=== PATIENT | female | born 1995 | race Caucasian/White ===

== ENCOUNTER 2019-06-19 12:32 | Emergency (ER) | payer SELFPAY ==
[2019-06-19] MEDS ORDERED: ACETAMINOPHEN 1,000 MG/100 ML BTL IVPB ONE (13:01)
[2019-06-19] MEDS ORDERED: 0.9 % SODIUM CHLORIDE 1,000 ML BAG IV ONE (13:01)
--- NOTE | 2019-06-19 13:05 | Emergency Department Record ---
History of Present Illness - General Chief complaint: Flank Pain Stated complaint: POSS KIDNEY STONES Time Seen by Provider: 06/19/19 12:56 Source: Patient Mode of Arrival: Ambulatory Limitations: No limitations - History of Present Illness Initial comments: The patient is here due to L flank pain for 2 days. The pain seems to be worse with any movement and bending. She denies any AP, nausea, vomiting, diarrhea, or fever. The patient does have a hx of kidney stones with similar pain. MD Complaint: Other Onset/Timin -: Days(s) Radiation: L flank Severity: Moderate Severity scale (1-10): 8 Quality: Sharp Consistency: Constant Worsens with: Movement Patient : (unsure) Associated Symptoms: Denies other symptoms - Related Data Sexually active: Yes Home Medications Medication Instructions Recorded Confirmed Last Taken Alprazolam 1 mg PO ASDIR PRN 06/19/19 06/19/19 Unknown Dextroamphetamine/Amphetamine 30 mg PO DAILY 06/19/19 06/19/19 06/19/19 [Dextroamp-Amphetamin 30 mg Tab] Norethindrone-E.estradiol-Iron 1 each PO DAILY 06/19/19 06/19/19 06/19/19 [Junel Fe 1 mg-20 Mcg Tablet] Previous Rx's Medication Instructions Recorded Naproxen [Naprosyn] 250 mg PO BID #14 tablet 06/19/19 Allergies Allergy/AdvReac Type Severity Reaction Status Date / Time No Known Drug Allergies Allergy Verified 06/19/19 12:47 Travel Screening - Travel/Exposure Within Last 30 Days Have you traveled within the last 30 days?: No - Travel/Exposure Within Last Year Have you traveled outside the [place] in the last year?: No - Additonal Travel Details Have you been exposed to anyone with a communicable illness?: No - Travel Symptoms Symptom Screening: None Review of Systems Constitutional: Denies: Chills, Fever Eyes: Denies: Eye discharge ENT: Denies: Congestion Respiratory: Denies: Cough Cardiovascular: Denies: Arrhythmia, Chest pain Endocrine: Denies: Fatigue Gastrointestinal: Denies: Abdominal pain, Nausea Genitourinary: Denies: Dysuria Musculoskeletal: Denies: Arthralgia Past Medical History - SOCIAL HISTORY Smoking Status: Never smoker Alcohol Use: Occasional Drug Use: None - RESPIRATORY Hx Respiratory Disorders: No - CARDIOVASCULAR Hx Cardio Disorders: No - NEURO Hx Neuro Disorders: Yes Comment:: ADD - GI Hx GI Disorders: No - Hx Genitourinary Disorders: Yes Hx Kidney Stones: Yes - ENDOCRINE Hx Endocrine Disorders: No - MUSCULOSKELETAL Hx Musculoskeletal Disorders: No - PSYCH Hx Psych Problems: Yes Hx Anxiety: Yes - HEMATOLOGY/ONCOLOGY Hx Hematology/Oncology Disorders: No Family Medical History Any Significant Family History?: Yes Hx Anxiety: Father, Mother Hx Cancer: Grandparents Hx Depression: Father, Mother Physical Exam - General General Appearance: Alert, Oriented x3, Cooperative, No acute distress - Head Head exam: Atraumatic, Normocephalic - Eye Eye exam: Normal appearance, PERRL - Neck Neck exam: Normal inspection, Full ROM. negative: Tenderness - Respiratory Respiratory exam: Normal lung sounds bilaterally. negative: Respiratory distress - Cardiovascular Cardiovascular Exam: Regular rate, Normal rhythm, Normal heart sounds - GI/Abdominal GI/Abdominal exam: Soft, Normal bowel sounds. negative: Tenderness - Extremities Extremities exam: Normal inspection, Full ROM, Normal capillary refill. negative: Tenderness - Back Back exam: Reports: CVA tenderness (L) (mild.), Paraspinal tenderness (There is L lower lumbar paraspinal tenderness.). Denies: Vertebral tenderness Image of Body Front/Back: 1 - Area of pain and tend. - Neurological Neurological exam: Alert, Normal gait. negative: Abnormal gait, Motor sensory deficit - Psychiatric Psychiatric exam: negative: Anxious - Skin Skin exam: negative: Rash Course Vital Signs 06/19/19 12:49 Temperature 97.5 F L Pulse Rate 89 Respiratory 22 Rate Blood Pressure 113/81 Pulse Ox 98 - Reevaluation(s) Reevaluation #1: The patient is doing a lot better at this time with much less pain. She appears very comfortable and in NO distress. The L lower back pain is still mildly reproducible to palpation. I did discuss the need to rest and take the Naprosyn for pain. I also did discuss the normal workup including the lab work, UA and CT that did not demonstrate any stone or infection. She is to see her PCP this week for recheck. 06/19/19 15:11 Medical Decision Making - Data Complexity MDM Data: Labs Ordered and/or Reviewed, X-Ray Ordered and/or Reviewed - Lab Data Result diagrams: 06/19/19 13:15 06/19/19 13:15 - Radiology Data Radiology results: Report reviewed (CT: Neg for any acute process, Neg for stone or hydro.) Disposition Disposition: Discharge Clinical Impression: Acute flank pain Disposition: Home, Self-Care Condition: (2) Stable Instructions: Flank Pain (ED) Additional Instructions: Please take the Naprosyn for pain and drink plenty of fluids. Please see your doctor this week for recheck if not better. Return to the ER for any worsening symptoms. Prescriptions: Naproxen [Naprosyn] 250 mg PO BID #14 tablet Forms: Patient Portal Access Time of Disposition: 15:11 Quality - Quality Measures Quality Measures: N/A - Blood Pressure Screening View Details: Yes Does Patient Have Any of the Following: No Blood Pressure Classification: Pre-Hypertensive BP Reading Systolic Measurement: 113 Diastolic Measurement: 81 Screening for High Blood Pressure: < Pre-Hypertensive BP, F/U Documented > [G8950] Pre-Hypertensive Follow-up Interventions: Referral to alternative/primary care provider.
[2019-06-19 13:22] LABS: ABSOLUTE NEUTROPHIL COUNT 3.34; BASO % 0.2 % (0-6); EOS % 1.5 % (0-6); GRAN % 62.7 % (47-80); HEMATOCRIT 43.4 % (35.0-47.0); HEMOGLOBIN 13.9 gm/dl (11.6-16.0); LYMPH % 27.1 % (16-45); MEAN CORPUSCULAR HEMOGLOBIN 30.4 pg (27-33); MEAN PLATELET VOLUME 10.4 fl (7.4-10.4); MONO % 8.5 % (0-9); PLATELET COUNT 246 K/uL (130-400); RED BLOOD COUNT 4.57 M/uL (3.80-5.40); RED CELL DISTRIBUTION WIDTH 12.7 % (11.5-14.5); URINE APPEARANCE CLOUDY; URINE BILIRUBIN SMALL (NEGATIVE); URINE BLOOD LARGE (NEGATIVE); URINE COLOR YELLOW; URINE GLUCOSE (UA) NEGATIVE (NEGATIVE); URINE KETONE NEGATIVE (NEGATIVE); URINE LEUKOCYTE ESTERASE SMALL (NEGATIVE); URINE NITRITE POSITIVE (NEGATIVE); URINE UROBILINOGEN 0.2 E.U./dL (0.20 - 1.00); WHITE BLOOD COUNT W/O DIFF 5.3 K/uL (4.2-12.2)
[2019-06-19 13:27] LABS: AMPHETAMINE SCREEN URINE NOT DETECTED; BARBITURATE SCREEN URINE NOT DETECTED; BENZODIAZEPINE SCREEN URINE DETECTED; COCAINE SCREEN URINE NOT DETECTED; METHADONE SCREEN URINE NOT DETECTED; METHAMPHETAMINE SCREEN NOT DETECTED; OPIATE SCREEN URINE NOT DETECTED; OXYCODONE SCREEN URINE NOT DETECTED; PHENCYCLIDINE SCREEN URINE NOT DETECTED; PROPOXYPHENE SCREEN URINE NOT DETECTED; THC SCREEN URINE NOT DETECTED; TRICYCLIC ANTIDEPRESSANT SCRN NOT DETECTED
[2019-06-19 13:31] LABS: HCG,QUALITATIVE URINE NEGATIVE (NEGATIVE); URINE BACTERIA 3+; URINE RBC 36 - 50 (NONE SEEN)
[2019-06-19 13:36] LABS: BLOOD UREA NITROGEN 8 mg/dL (6-20); CREATININE 0.6 mg/dL (0.5-0.9); EST GLOMERULAR FILTRATION RATE > 60 mL/min
[2019-06-19 13:39] LABS: GLUCOSE,RANDOM 82 mg/dL (74-109)
[2019-06-19 14:14] LABS: URINE APPEARANCE SL CLOUDY; URINE BILIRUBIN NEGATIVE (NEGATIVE); URINE BLOOD LARGE (NEGATIVE); URINE COLOR YELLOW; URINE GLUCOSE (UA) NEGATIVE (NEGATIVE); URINE KETONE NEGATIVE (NEGATIVE); URINE LEUKOCYTE ESTERASE NEGATIVE (NEGATIVE); URINE NITRITE NEGATIVE (NEGATIVE); URINE PROTEIN TRACE (NEGATIVE); URINE UROBILINOGEN 0.2 E.U./dL (0.20 - 1.00)
[2019-06-19 14:30] LABS: URINE APPEARANCE CLEAR; URINE BLOOD SMALL (NEGATIVE); URINE COLOR YELLOW; URINE GLUCOSE (UA) NEGATIVE (NEGATIVE); URINE KETONE TRACE (NEGATIVE); URINE LEUKOCYTE ESTERASE NEGATIVE (NEGATIVE); URINE NITRITE NEGATIVE (NEGATIVE); URINE PROTEIN NEGATIVE (NEGATIVE); URINE UROBILINOGEN 0.2 E.U./dL (0.20 - 1.00)
[2019-06-19 14:34] LABS: URINE BILIRUBIN NEGATIVE (NEGATIVE)
[2019-06-19 14:35] LABS: URINE BACTERIA NONE SEEN; URINE EPITHELIAL CELLS NONE SEEN (FEW); URINE RBC 0 - 2 (NONE SEEN); URINE WBC NONE SEEN (0-2/hpf)
[2019-06-19] MEDS ORDERED: KETOROLAC 30 MG/ML VIAL IVP ONE (14:46)
--- NOTE | 2019-06-20 20:52 | CT SCAN REPORT ---
EXAM: CT SCAN ABDOMEN/PELVIS WO CONTRAST HISTORY: LEFT FLANK PAIN, BACK PAIN, AND PELVIC PAIN. TECHNIQUE: Standard CT imaging of the abdomen and pelvis was performed without contrast. Additional coronal and sagittal reformatted images were also performed. COMPARISON: None. FINDINGS: The lung bases are clear. The liver, gallbladder, biliary tree, pancreas, spleen, and adrenal glands are normal. The kidneys and ureters are normal in appearance. There is no urinary tract calculus or obstructive uropathy. There is no abnormal perinephric fat stranding. The aorta is normal in caliber. There is no retroperitoneal lymphadenopathy. The large and small bowel loops are normal in appearance. The appendix is visualized and is unremarkable. There are no focal inflammatory changes. There is no pneumoperitoneum or ascites. The stomach is unremarkable. The uterus and adnexa appear normal. The urinary bladder is unremarkable. The anterior abdominal wall is normal. There are no acute osseous abnormalities. IMPRESSION: NO ACUTE INTRAABDOMINAL PATHOLOGY. THERE IS NO URINARY TRACT CALCULUS OR OBSTRUCTIVE UROPATHY. JOB NUMBER: [id number] [facility]
== END 2019-06-19 15:20 | disposition home or self-care (01) ==
LOC: ER 12:32
DX: R10.32 Left lower quadrant pain (principal); M54.5 Low back pain; Z87.442 Personal history of urinary calculi
CPT/HCPCS: 99284 ×2; 96365; 96375; 85025; 80048; 81001; 81003; 81025; 80305; 74176; J1885; J7030

== ENCOUNTER 2019-07-22 16:32 | Emergency (ER) | payer MEDICAID ==
[2019-07-22] MEDS ORDERED: KETOROLAC 30 MG/ML VIAL IVP ONE (16:54)
[2019-07-22] MEDS ORDERED: 0.9 % SODIUM CHLORIDE 1,000 ML BAG IV ONE ×2 (16:54→19:15)
[2019-07-22] MEDS ORDERED: ACETAMINOPHEN 1,000 MG/100 ML BTL IVPB ONE (16:54)
--- NOTE | 2019-07-22 17:03 | Emergency Department Record ---
History of Present Illness - General Chief Complaint: Back Pain/Injury Stated Complaint: SIDE PAIN AND BACK PAIN Time Seen by Provider: 07/22/19 16:47 Source: Patient Mode of Arrival: Ambulatory Limitations: No limitations - History of Present Illness Initial Comments: 24 yo female presents with nausea, vomiting, abdominal and flank pain for one week. She states she has had renal stones in the past. This feels similar. She states during that time the urine has darkened and maybe some blood. She had some subjective fevers and chills but did not take her temperature. The pain is mostly left lateral but she has some radiate all over the abdomen. She states the pain is above the level of the umbilicus and minimal to no pain below. She was in the ED June [address] scan were negative for any acute or chronic pathology. MD Complaint: Back pain Onset/Timin -: Week(s) Place: Home Severity: Moderate Severity scale (1-10): 9 Quality: Sharp, Stabbing Consistency: Constant Improves With: Immobilization Worsens With: Movement, Walking Context: Unknown Associated Symptoms: Difficulty urinating Treatments Prior to Arrival: Acetaminophen, NSAIDS, Other - Related Data Previous Rx's Medication Instructions Recorded Cephalexin [Keflex] 500 mg PO TID #21 cap 07/22/19 Hydrocodone/APAP 5/325Mg [[place] 1 each PO Q6H #8 tab 07/22/19 5Mg/325Mg] Allergies Allergy/AdvReac Type Severity Reaction Status Date / Time No Known Drug Allergies Allergy Verified 07/22/19 16:38 Travel Screening - Travel/Exposure Within Last 30 Days Have you traveled within the last 30 days?: No - Travel/Exposure Within Last Year Have you traveled outside the [place] in the last year?: No - Additonal Travel Details Have you been exposed to anyone with a communicable illness?: No - Travel Symptoms Symptom Screening: None Review of Systems Constitutional: Reports: Chills, Fever (subjective), Malaise. Denies: Weakness Eyes: Denies: Eye discharge, Eye pain, Photophobia, Vision change ENT: Denies: Congestion, Throat pain Respiratory: Denies: Cough, Dyspnea, Hemoptysis, Wheezes Cardiovascular: Denies: Chest pain, Edema Endocrine: Denies: Fatigue, Polydipsia, Polyuria Gastrointestinal: Reports: Abdominal pain, Nausea, Vomiting. Denies: Diarrhea Genitourinary: Reports: Dysuria, Frequency, Hematuria Musculoskeletal: Reports: Back pain. Denies: Arthralgia, Neck pain Skin: Denies: Bruising, Change in color, Rash Neurological: Denies: Headache Psychiatric: Denies: Anxiety Hematological/Lymphatic: Denies: Easy bleeding, Easy bruising Past Medical History - SOCIAL HISTORY Smoking Status: Never smoker Alcohol Use: Occasional Drug Use: None - RESPIRATORY Hx Respiratory Disorders: No - CARDIOVASCULAR Hx Cardio Disorders: No - NEURO Hx Neuro Disorders: Yes Comment:: ADD - GI Hx GI Disorders: No - Hx Genitourinary Disorders: Yes Hx Kidney Stones: Yes - ENDOCRINE Hx Endocrine Disorders: No - MUSCULOSKELETAL Hx Musculoskeletal Disorders: No - PSYCH Hx Psych Problems: Yes Hx Anxiety: Yes - HEMATOLOGY/ONCOLOGY Hx Hematology/Oncology Disorders: No Family Medical History Any Significant Family History?: Yes Hx Anxiety: Father, Mother Hx Cancer: Grandparents Hx Depression: Father, Mother Physical Exam - General General Appearance: Alert, Oriented x3, Cooperative, No acute distress Limitations: No limitations - Head Head exam: Atraumatic, Normal inspection - Eye Eye exam: Normal appearance, PERRL. negative: Conjunctival injection, Scleral icterus - ENT ENT exam: Normal exam, Mucous membranes moist Ear exam: Normal external inspection Nasal Exam: Normal inspection Mouth exam: Normal external inspection - Neck Neck exam: Normal inspection - Respiratory Respiratory exam: Normal lung sounds bilaterally. negative: Respiratory distress - Cardiovascular Cardiovascular Exam: Normal rhythm, Normal heart sounds, Tachycardia - GI/Abdominal GI/Abdominal exam: Soft, Tenderness (tender left upper quadrant but very soft, no rash, remainder of the abdomen is soft). negative: Distended, Guarding, Rebound, Rigid - Rectal Rectal exam: Deferred - exam: Deferred - Extremities Extremities exam: Normal inspection. negative: Tenderness - Back Back exam: Reports: CVA tenderness (L), Tenderness. Denies: CVA tenderness (R), Rash noted - Neurological Neurological exam: Alert, Oriented X3 - Psychiatric Psychiatric exam: Normal affect, Normal mood. negative: Agitated, Anxious - Skin Skin exam: Dry, Intact, Normal color, Warm Course Vital Signs 07/22/19 16:40 Temperature 99 F Pulse Rate 122 H Respiratory 20 Rate Blood Pressure 109/72 Pulse Ox 100 - Reevaluation(s) Reevaluation #1: 07/22/19 17:27 The CBC is normal 07/22/19 17:45 the CMP is normal The UA is N+, LE+, 21-35 WBC's with +4 bacteria but with Epis of 36-50 07/22/19 19:09 The US was reviewed. Mild dilatation of the renal collecting system of indete rminate etiology. No stones present 06/19/19. If this persists consider follow up CT urogram The results were discussed with the patient Given she does not have a fever or elevated WBC count and she has had multiple CT scans in the past most recent one month ago that was normal I recommend DC home and follow up with her PCP and recheck if a CT urogram will be indicated. I explained to the patient that radiation dosing does present some future risks of cancer. The case was signed out for repeat UA. She will be treated and culture sent. Medical Decision Making - Lab Data Result diagrams: 07/22/19 17:10 07/22/19 17:10 Disposition Disposition: Discharge Clinical Impression: Left flank pain, Urinary tract infection Disposition: Home, Self-Care Condition: (1) Good Instructions: Urinary Tract Infection in Women (ED), Flank Pain (ED) Additional Instructions: Review this ER visit and the tests performed with your family doctor Call your doctor for the next available follow up appointment Return to the ER for a recheck if worse, any new concerns or questions Take the prescriptions provided as directed Prescriptions: Cephalexin [Keflex] 500 mg PO TID #21 cap Hydrocodone/APAP 5/325Mg [[place] 5Mg/325Mg] 1 each PO Q6H #8 tab Forms: Patient Portal Access Time of Disposition: 09:00 Quality - Quality Measures Quality Measures: N/A - Blood Pressure Screening Does Patient Have Any of the Following: No Blood Pressure Classification: Normal BP Reading Systolic Measurement: 109 Diastolic Measurement: 72 Screening for High Blood Pressure: < Normal BP, F/U Not Required > [G8783]
[2019-07-22 17:16] LABS: ABSOLUTE NEUTROPHIL COUNT 3.71; BASO % 0.2 % (0-6); EOS % 0.2 % (0-6); GRAN % 69.3 % (47-80); HEMATOCRIT 40.3 % (35.0-47.0); HEMOGLOBIN 13.6 gm/dl (11.6-16.0); LYMPH % 15.5 % (16-45); MEAN CELL VOLUME 90.2 fl (81-97); MEAN CORPUSCULAR HEMOGLOBIN 30.4 pg (27-33); MEAN CORPUSCULAR HGB CONC 33.7 g/dl (32-36); MEAN PLATELET VOLUME 10.3 fl (7.4-10.4); MONO % 14.8 % (0-9); PLATELET COUNT 309 K/uL (130-400); RED BLOOD COUNT 4.47 M/uL (3.80-5.40); RED CELL DISTRIBUTION WIDTH 12.3 % (11.5-14.5); WHITE BLOOD COUNT W/O DIFF 5.4 K/uL (4.2-12.2)
[2019-07-22 17:27] LABS: URINE APPEARANCE SL CLOUDY; URINE BILIRUBIN NEGATIVE (NEGATIVE); URINE BLOOD SMALL (NEGATIVE); URINE COLOR YELLOW; URINE GLUCOSE (UA) NEGATIVE (NEGATIVE); URINE KETONE NEGATIVE (NEGATIVE); URINE LEUKOCYTE ESTERASE TRACE (NEGATIVE); URINE NITRITE POSITIVE (NEGATIVE); URINE PROTEIN TRACE (NEGATIVE)
[2019-07-22 17:30] LABS: BLOOD UREA NITROGEN 8 mg/dL (6-20); CREATININE 0.6 mg/dL (0.5-0.9); EST GLOMERULAR FILTRATION RATE > 60 mL/min
[2019-07-22 17:31] LABS: HCG,QUALITATIVE URINE NEGATIVE (NEGATIVE)
[2019-07-22 17:31] LABS: TOTAL PROTEIN 8.3 g/dL (6.6-8.7)
[2019-07-22 17:33] LABS: GLUCOSE,RANDOM 105 mg/dL (74-109)
[2019-07-22 17:34] LABS: URINE RBC 0 - 2 (NONE SEEN)
[2019-07-22 17:35] LABS: URINE EPITHELIAL CELLS 36 - 50 (FEW); URINE WBC 21 - 35 (0-2/hpf)
[2019-07-22 17:36] LABS: ALBUMIN 4.1 g/dL (4.0-5.0); ALKALINE PHOSPHATASE 63 U/L (35-104); ALT/SGPT 11 U/L (<33); AST/SGOT 16 U/L (10.0-35.0)
[2019-07-22 17:36] LABS: URINE BACTERIA 4+
[2019-07-22] MEDS ORDERED: CEFTRIAXONE 1GM/50ML BAG 1 GM/50 ML BAG IVPB ONE (17:46)
--- NOTE | 2019-07-22 18:57 | ULTRASOUND REPORT ---
EXAMINATION: Kidney and Bladder Ultrasound EXAM DATE: 07/22/2019 6:36 PM TECHNIQUE: Ultrasound of the kidneys and bladder. INDICATION: left flank pain. COMPARISON: CT abdomen/pelvis 06/19/2019. FINDINGS: Right Kidney: The right kidney measures 11 x 5.2 x 4.8 cm(length x AP x width) in dimension. The ech ogenicity of the kidney is normal. No hydronephrosis is present. No cysts or masses are present . Left Kidney: The left kidney measures 11.5 x 4.6 x 5.3 cm(length x AP x width) in dimension. The echo genicity of the kidney is normal. Mild left pelvocaliectasis. No cysts or masses are present. Bladder: Unremarkable. ADDITIONAL FINDINGS: None. IMPRESSION: 1. Mild dilation of the left renal collecting system of indeterminate etiology. No renal stones were present on the 06/19/2019 CT. If this persists, consider follow-up with CT urogram to exclude an obs tructing ureteral or bladder lesion. 2. Unremarkable examination of the right kidney. Dictated by: Lenin Devlin MD on 07/22/2019 6:46 PM. .
[2019-07-22 19:07] LABS: URINE APPEARANCE CLEAR; URINE BILIRUBIN NEGATIVE (NEGATIVE); URINE BLOOD TRACE-L (NEGATIVE); URINE COLOR YELLOW; URINE GLUCOSE (UA) NEGATIVE (NEGATIVE); URINE KETONE NEGATIVE (NEGATIVE); URINE LEUKOCYTE ESTERASE NEGATIVE (NEGATIVE); URINE NITRITE POSITIVE (NEGATIVE); URINE PROTEIN NEGATIVE (NEGATIVE)
[2019-07-22] MEDS ORDERED: MORPHINE SULFATE 5 MG/ML VIAL IVP ONE (19:15)
[2019-07-22 19:17] LABS: URINE BACTERIA 2+; URINE RBC 0 - 2 (NONE SEEN)
--- NOTE | 2019-07-22 19:49 | Emergency Department Record ---
History of Present Illness - General Chief Complaint: Back Pain/Injury Stated Complaint: SIDE PAIN AND BACK PAIN Time Seen by Provider: 07/22/19 16:47 Source: Patient Limitations: No limitations - History of Present Illness Onset/Timin -: Week(s) Place: Home Severity: Moderate Severity scale (1-10): 9 Quality: Sharp, Stabbing Consistency: Constant Improves With: Immobilization Worsens With: Movement, Walking Context: Unknown Associated Symptoms: Difficulty urinating Treatments Prior to Arrival: Acetaminophen, NSAIDS, Other - Related Data Previous Rx's Medication Instructions Recorded Cephalexin [Keflex] 500 mg PO TID #21 cap 07/22/19 Hydrocodone/APAP 5/325Mg [[place] 1 each PO Q6H #8 tab 07/22/19 5Mg/325Mg] Allergies Allergy/AdvReac Type Severity Reaction Status Date / Time No Known Drug Allergies Allergy Verified 07/22/19 16:38 Travel Screening - Travel/Exposure Within Last 30 Days Have you traveled within the last 30 days?: No - Travel/Exposure Within Last Year Have you traveled outside the [place] in the last year?: No - Additonal Travel Details Have you been exposed to anyone with a communicable illness?: No - Travel Symptoms Symptom Screening: None Review of Systems Constitutional: Reports: Chills, Fever (subjective), Malaise. Denies: Weakness Eyes: Denies: Eye discharge, Eye pain, Photophobia, Vision change ENT: Denies: Congestion, Throat pain Respiratory: Denies: Cough, Dyspnea, Hemoptysis, Wheezes Cardiovascular: Denies: Chest pain, Edema Endocrine: Denies: Fatigue, Polydipsia, Polyuria Gastrointestinal: Reports: Abdominal pain, Nausea, Vomiting. Denies: Diarrhea Genitourinary: Reports: Dysuria, Frequency, Hematuria Musculoskeletal: Reports: Back pain. Denies: Arthralgia, Neck pain Skin: Denies: Bruising, Change in color, Rash Neurological: Denies: Headache Psychiatric: Denies: Anxiety Hematological/Lymphatic: Denies: Easy bleeding, Easy bruising Past Medical History - SOCIAL HISTORY Smoking Status: Never smoker Alcohol Use: Occasional Drug Use: None - RESPIRATORY Hx Respiratory Disorders: No - CARDIOVASCULAR Hx Cardio Disorders: No - NEURO Hx Neuro Disorders: Yes Comment:: ADD - GI Hx GI Disorders: No - Hx Genitourinary Disorders: Yes Hx Kidney Stones: Yes - ENDOCRINE Hx Endocrine Disorders: No - MUSCULOSKELETAL Hx Musculoskeletal Disorders: No - PSYCH Hx Psych Problems: Yes Hx Anxiety: Yes - HEMATOLOGY/ONCOLOGY Hx Hematology/Oncology Disorders: No Family Medical History Any Significant Family History?: Yes Hx Anxiety: Father, Mother Hx Cancer: Grandparents Hx Depression: Father, Mother Physical Exam - General Limitations: No limitations Course Vital Signs 07/22/19 07/22/19 16:40 19:12 Temperature 99 F 98.4 F Pulse Rate 122 H Pulse Rate [ 91 H Pulse Ox Probe] Respiratory 20 18 Rate Blood Pressure 109/72 Blood Pressure 97/67 [Right Arm] Pulse Ox 100 100 - Reevaluation(s) Reevaluation #1: 07/22/19 19:48 repeat UA was reviewed: RBCs 0-2 WBCs 3-5 Epis: 3-6 Bacteria: 2+ Patient was updated on her result, asking for her IV to be removed and reports that she is ready to go home at this time. Patient will discharged on Keflex and [place] as directed. Patient appears stable for discharge at this time. Medical Decision Making - Lab Data Result diagrams: 07/22/19 17:10 07/22/19 17:10 Lab Results 07/22/19 07/22/19 07/22/19 Range/Units 17:10 17:10 17:10 WBC 5.4 (4.2-12.2) K/uL RBC 4.47 (3.80-5.40) M/uL Hgb 13.6 (11.6-16.0) gm/dl Hct 40.3 (35.0-47.0) % MCV 90.2 (81-97) fl MCH 30.4 (27-33) pg MCHC 33.7 (32-36) g/dl RDW 12.3 (11.5-14.5) % Plt Count 309 (130-400) K/uL MPV 10.3 (7.4-10.4) fl Gran % 69.3 (47-80) % Lymphocytes % 15.5 L (16-45) % Monocytes % 14.8 H (0-9) % Eosinophils % 0.2 (0-6) % Basophils % 0.2 (0-6) % Absolute Neutrophils 3.71 Sodium 134 L (136-145) mmol/L Potassium 3.6 (3.4-4.5) mmol/L Chloride 96 L (98-107) mmol/L Carbon Dioxide 25.0 (22-29) mmol/L Anion Gap 13.0 (7-16) BUN 8 (6-20) mg/dL Creatinine 0.6 (0.5-0.9) mg/dL Estimated GFR > 60 mL/min Random Glucose 105 (74-109) mg/dL Calcium 9.7 (8.6-10.0) mg/dL Total Bilirubin 0.40 (0.2-1.0) mg/dL AST 16 (10.0-35.0) U/L ALT 11 (<33) U/L Alkaline Phosphatase 63 (35-104) U/L Total Protein 8.3 (6.6-8.7) g/dL Albumin 4.1 (4.0-5.0) g/dL Globulin 4.2 (1.4-4.8) gm/dL Albumin/Globulin Ratio 1.0 L (1.1-1.8) Lipase 26 (13-60) U/L Urine Color Urine Appearance Urine pH (5.0-8.0) Ur Specific [place] (1.002-1.030) Urine Protein (NEGATIVE) Urine Glucose (UA) (NEGATIVE) Urine Ketones (NEGATIVE) Urine Blood (NEGATIVE) Urine Nitrite (NEGATIVE) Urine Bilirubin (NEGATIVE) Urine Urobilinogen (0.20 - 1.00) E.U./dL Ur Leukocyte Esterase (NEGATIVE) Urine RBC (NONE SEEN) Urine WBC (0-2/hpf) Ur Epithelial Cells (FEW) Urine Bacteria Urine HCG, Qual (NEGATIVE) 07/22/19 07/22/19 Range/Units 17:20 19:04 WBC (4.2-12.2) K/uL RBC (3.80-5.40) M/uL Hgb (11.6-16.0) gm/dl Hct (35.0-47.0) % MCV (81-97) fl MCH (27-33) pg MCHC (32-36) g/dl RDW (11.5-14.5) % Plt Count (130-400) K/uL MPV (7.4-10.4) fl Gran % (47-80) % Lymphocytes % (16-45) % Monocytes % (0-9) % Eosinophils % (0-6) % Basophils % (0-6) % Absolute Neutrophils Sodium (136-145) mmol/L Potassium (3.4-4.5) mmol/L Chloride (98-107) mmol/L Carbon Dioxide (22-29) mmol/L Anion Gap (7-16) BUN (6-20) mg/dL Creatinine (0.5-0.9) mg/dL Estimated GFR mL/min Random Glucose (74-109) mg/dL Calcium (8.6-10.0) mg/dL Total Bilirubin (0.2-1.0) mg/dL AST (10.0-35.0) U/L ALT (<33) U/L Alkaline Phosphatase (35-104) U/L Total Protein (6.6-8.7) g/dL Albumin (4.0-5.0) g/dL Globulin (1.4-4.8) gm/dL Albumin/Globulin Ratio (1.1-1.8) Lipase (13-60) U/L Urine Color Yellow Yellow Urine Appearance Sl cloudy Clear Urine pH 6.0 6.5 (5.0-8.0) Ur Specific [place] 1.010 <= 1.005 (1.002-1.030) Urine Protein Trace H Negative (NEGATIVE) Urine Glucose (UA) Negative Negative (NEGATIVE) Urine Ketones Negative Negative (NEGATIVE) Urine Blood Small H Trace-l (NEGATIVE) Urine Nitrite Positive H Positive H (NEGATIVE) Urine Bilirubin Negative Negative (NEGATIVE) Urine Urobilinogen 1.0 1.0 (0.20 - 1.00) E.U./dL Ur Leukocyte Esterase Trace H Negative (NEGATIVE) Urine RBC 0 - 2 0 - 2 (NONE SEEN) Urine WBC 21 - 35 3 - 5 (0-2/hpf) Ur Epithelial Cells 36 - 50 3 - 6 (FEW) Urine Bacteria 4+ 2+ Urine HCG, Qual Negative (NEGATIVE) Disposition Clinical Impression: Left flank pain, Urinary tract infection Disposition: Home, Self-Care Condition: (1) Good Instructions: Urinary Tract Infection in Women (ED), Flank Pain (ED) Additional Instructions: Review this ER visit and the tests performed with your family doctor Call your doctor for the next available follow up appointment Return to the ER for a recheck if worse, any new concerns or questions Take the prescriptions provided as directed Prescriptions: Cephalexin [Keflex] 500 mg PO TID #21 cap Hydrocodone/APAP 5/325Mg [[place] 5Mg/325Mg] 1 each PO Q6H #8 tab Forms: Patient Portal Access Quality - Quality Measures Quality Measures: N/A - Blood Pressure Screening Does Patient Have Any of the Following: No Blood Pressure Classification: Normal BP Reading Systolic Measurement: 109 Diastolic Measurement: 72 Screening for High Blood Pressure: < Normal BP, F/U Not Required > [G8783]
== END 2019-07-22 19:54 | disposition home or self-care (01) ==
LOC: ER 16:32
DX: N39.0 Urinary tract infection, site not specified (principal); M54.5 Low back pain; R10.9 Unspecified abdominal pain; R11.2 Nausea with vomiting, unspecified; Z87.442 Personal history of urinary calculi
CPT/HCPCS: 76775; 80053; 81001; 81025; 83690; 85025; 96365; 96366; 96375; 99284; J0696; J1885; J7030

== ENCOUNTER 2019-08-29 10:57 | Emergency (ER) | payer MEDICAID ==
--- NOTE | 2019-08-29 13:16 | RADIOLOGY REPORT ---
EXAMINATION: Two View Chest Radiographs EXAM DATE: 08/29/2019 12:52 PM TECHNIQUE: Frontal and lateral views INDICATION: cough COMPARISON: None ENCOUNTER: Not applicable FINDINGS: The heart, mediastinum, and pulmonary vasculature are normal. No lung consolidation or pleural effu sions are present. IMPRESSION: No acute abnormality Dictated by: Lamin Oneill MD on 08/29/2019 1:10 PM. .
[2019-08-29 13:37] LABS: INFLUENZA A NEGATIVE (NEGATIVE); INFLUENZA B NEGATIVE (NEGATIVE)
[2019-08-29] MEDS ORDERED: IBUPROFEN 600 MG TABLET PO ONE (13:51)
--- NOTE | 2019-08-29 13:51 | Emergency Department Record ---
History of Present Illness - General Chief complaint: ENT Stated complaint: SORE THROAT Time Seen by Provider: 08/29/19 11:53 Source: Patient Mode of Arrival: Ambulatory Limitations: No limitations - History of Present Illness Initial comments: pt has had a sore throat for 2 days, MD complaint: Sore throat Onset/Timin -: Days(s) Location: Throat Severity: Moderate Severity scale (1-10): 8 Quality: Other Consistency: Constant Improves with: None Worsens with: Swallowing Associated Symptoms: Sore throat - Related Data Allergies Allergy/AdvReac Type Severity Reaction Status Date / Time No Known Drug Allergies Allergy Verified 08/29/19 11:30 Travel Screening - Travel/Exposure Within Last 30 Days Have you traveled within the last 30 days?: No - Travel/Exposure Within Last Year Have you traveled outside the [place] in the last year?: No - Additonal Travel Details Have you been exposed to anyone with a communicable illness?: No - Travel Symptoms Symptom Screening: None Review of Systems Reviewed: No additional complaints except as noted below Constitutional: Reports: As per HPI. Denies: Chills, Fever, Malaise, Night sweats, Weakness, Weight change Eyes: Reports: As per HPI. Denies: Eye discharge, Eye pain, Photophobia, Vision change ENT: Reports: As per HPI, Throat pain. Denies: Congestion, Dental pain, Ear pain, Epistaxis, Hearing loss Respiratory: Reports: As per HPI. Denies: Cough, Dyspnea, Hemoptysis, Stridor, Wheezes Cardiovascular: Reports: As per HPI. Denies: Arrhythmia, Chest pain, Dyspnea on exertion, Edema, Murmurs, Orthopnea, Palpitations, Paroxysmal nocturnal dyspnea, Rheumatic Fever, Syncope Endocrine: Reports: As per HPI. Denies: Fatigue, Heat or cold intolerance, Polydipsia, Polyuria Gastrointestinal: Reports: As per HPI. Denies: Abdominal pain, Constipation, Diarrhea, Hematemesis, Hematochezia, Melena, Nausea, Vomiting Genitourinary: Reports: As per HPI. Denies: Abnormal menses, Discharge, Dyspareunia, Dysuria, Frequency, Hematuria, Incontinence, Retention, Urgency Musculoskeletal: Reports: As per HPI. Denies: Arthralgia, Back pain, Gout, Joint swelling, Myalgia, Neck pain Skin: Reports: As per HPI. Denies: Bruising, Change in color, Change in hair/nails, Lesions, Pruritus, Rash Neurological: Reports: As per HPI. Denies: Abnormal gait, Confusion, Headache, Numbness, Paresthesias, Seizure, Tingling, Tremors, Vertigo, Weakness Psychiatric: Reports: As per HPI. Denies: Anxiety, Auditory hallucinations, Depression, Homicidal thoughts, Suicidal thoughts, Visual hallucinations Hematological/Lymphatic: Reports: As per HPI. Denies: Anemia, Blood Clots, Easy bleeding, Easy bruising, Swollen glands Past Medical History - SOCIAL HISTORY Smoking Status: Never smoker Alcohol Use: Occasional Drug Use: None - RESPIRATORY Hx Respiratory Disorders: No - CARDIOVASCULAR Hx Cardio Disorders: No - NEURO Hx Neuro Disorders: Yes Comment:: ADD - GI Hx GI Disorders: No - Hx Genitourinary Disorders: Yes Hx Kidney Stones: Yes - ENDOCRINE Hx Endocrine Disorders: No - MUSCULOSKELETAL Hx Musculoskeletal Disorders: No - PSYCH Hx Psych Problems: Yes Hx Anxiety: Yes - HEMATOLOGY/ONCOLOGY Hx Hematology/Oncology Disorders: No Family Medical History Any Significant Family History?: Yes Hx Anxiety: Father, Mother Hx Cancer: Grandparents Hx Depression: Father, Mother Physical Exam - General General Appearance: Alert, Oriented x3, Cooperative, Mild distress - Head Head exam: Normal inspection - Eye Eye exam: Normal appearance, PERRL, EOMI Pupils: Normal accommodation - ENT ENT exam: Normal exam, Mucous membranes moist, Normal external ear exam, Normal orophraynx Ear exam: Normal external inspection. negative: External canal tenderness Nasal Exam: Normal inspection. negative: Discharge, Sinus tenderness Mouth exam: Normal external inspection, Tongue normal Teeth exam: Normal inspection. negative: Dental caries Throat exam: Tonsillar erythema. negative: Tonsillar exudate - Neck Neck exam: Normal inspection, Full ROM. negative: Tenderness - Respiratory Respiratory exam: Normal lung sounds bilaterally. negative: Respiratory distress - Cardiovascular Cardiovascular Exam: Regular rate, Normal rhythm, Normal heart sounds - GI/Abdominal GI/Abdominal exam: Soft, Normal bowel sounds. negative: Tenderness - Rectal Rectal exam: Deferred - exam: Deferred - Extremities Extremities exam: Normal inspection, Full ROM, Normal capillary refill. negative: Tenderness - Back Back exam: Reports: Normal inspection, Full ROM. Denies: Muscle spasm, Rash noted, Tenderness - Neurological Neurological exam: Alert, CN II-XII intact, Normal gait, Oriented X3 - Psychiatric Psychiatric exam: Normal affect, Normal mood - Skin Skin exam: Dry, Intact, Normal color, Warm Course Vital Signs 08/29/19 11:32 Temperature 97.9 F Pulse Rate 66 Respiratory 18 Rate Blood Pressure 118/72 Pulse Ox 99 Medical Decision Making - Lab Data Lab Results 08/29/19 08/29/19 Range/Units 11:39 12:24 Influenza Type A Ag Negative (NEGATIVE) Influenza Type B Ag Negative (NEGATIVE) Group A Strep Screen Negative (NEGATIVE) Disposition Disposition: Discharge Clinical Impression: Pharyngitis Qualifiers: Pharyngitis/tonsillitis etiology: unspecified etiology Qualified Code(s): J02.9 - Acute pharyngitis, unspecified Disposition: Home, Self-Care Condition: (1) Good Instructions: Pharyngitis (ED) Additional Instructions: follow up with family doctor. return sooner if worse. tylenol and motrin as needed. push fluids Forms: Patient Portal Access, Return to Work/School Quality - Quality Measures Quality Measures: Pharyngitis (3-18yr) - Blood Pressure Screening Does Patient Have Any of the Following: No Blood Pressure Classification: Normal BP Reading Systolic Measurement: 118 Diastolic Measurement: 72 Screening for High Blood Pressure: < Normal BP, F/U Not Required > [[id number]]
== END 2019-08-29 14:03 | disposition home or self-care (01) ==
LOC: ER 10:57
DX: J02.9 Acute pharyngitis, unspecified (principal); R05 Cough
CPT/HCPCS: 71046; 87400; 87880; 99283